=== PATIENT | female | born 1995 | race Caucasian/White ===

== ENCOUNTER 2016-09-11 20:34 | Emergency (ER) | payer OTHER ==
[2016-09-11 21:02] LABS: APPEARANCE,URINE Clear (CLEAR); COLOR,URINE Yellow (YELLOW); OCCULT BLOOD,URINE Negative (NEGATIVE); PH URINE 8.5 (5.0 - 8.0)
--- NOTE | 2016-09-11 22:17 | ED Physician Documentation ---
General Adult - HISTORIAN Historian: patient - HPI Stated Complaint: weakness, possible Chief Complaint: General Adult Timing: still present Severity: mild Further Comments: yes (Spike states that she has not has a period since July , usually is regular. Is taking birht control pill. Has not skipped any. Almost finished with graham now, had some spotting 2 days ago and lasted for two days. Has done some home tests whcich have been negative. Has been having some lower abd pain. No nausea or vomiting noted. Seems to be better at this time.) - ROS CONST: no problems. denies: fever, chills - PAST HX Past History: none Other History: none Surgeries/Procedures: none Allergies/Adverse Reactions: Allergies Allergy/AdvReac Type Severity Reaction Status Date / Time diphenhydramine HCl Allergy No Reaction Verified 09/11/16 21:31 [From Benadryl] Home Medications: Ambulatory Orders Medication Instructions Recorded NK [NK] 09/11/16 - SOCIAL HX Smoking History: less than 1 pack/day (1/2 ppd) Alcohol Use: occasionally Drug Use: none - FAMILY HX Family History: No - VITAL SIGNS Vital Signs: Vital Signs Temp Pulse Resp BP Pulse Ox 98.2 F 103 H 18 138/81 98 09/11/16 20:45 09/11/16 20:45 09/11/16 20:45 09/11/16 20:45 09/11/16 20:45 - REVIEWED ASSESSMENTS Nursing Assessment Reviewed: Yes Vitals Reviewed: Yes ED Results Lab/Radiology - Lab Results Lab Results: Lab Results 09/11/16 09/11/16 20:57 20:56 Urine Color Yellow (YELLOW) Urine Appearance Clear (CLEAR) Urine pH 8.5 (5.0 - 8.0) Ur Specific Dahlgren 1.015 (1.010-1.030) Urine Protein Negative mg/dL mg/dL (NEGATIVE) Urine Ketones Negative mg/dL mg/dL (NEGATIVE) Urine Occult Blood Negative (NEGATIVE) Urine Nitrite Negative (NEGATIVE) Urine Bilirubin Negative (NEGATIVE) Urine Urobilinogen 1.0 Eu Eu (0.2-1.0) Ur Leukocyte Esterase Negative (NEGATIVE) Urine Glucose Negative mg/dL mg/dL (NEGATIVE) Urine HCG, Qual Negative (NEGATIVE) - Orders Orders: ED Orders Category Date Time Status UA W/MICRO IF INDICATED Stat Lab 09/11/16 20:57 Completed URINE HCG Stat Lab 09/11/16 20:56 Completed General Adult Physical Exam - PHYSICAL EXAM GENERAL APPEARANCE: mild distress NECK: normal inspection, thyroid normal RESPIRATORY: no resp distress, chest non-tender, breath sounds normal. No: wheezes, rales, rhonchi CVS: reg rate & rhythm, heart sounds normal, equal pulses, no murmur, no gallop ABDOMEN: soft, no organomegaly, normal bowel sounds, no abdominal bruit, no distension, non-tender BACK: normal inspection, no CVA tenderness SKIN: warm/dry, normal color NEURO: oriented X3, CN's nml as tested, motor nml, sensation nml Discharge Clincal Impression: Spotting between menses Referrals: Primary Doctor,No [Primary Care Provider] - 2 Days Additional Instructions: Continue taking your control pills as directed. I would expect your next menstrual period to be heavier then normal. If you have any further problems to see a primary care provider or returnt to the ED. Home Medications: Ambulatory Orders NK [NK] 09/11/16 Condition: Stable Disposition: 01 HOME, SELF-CARE Decision to Admit: NO Date of Decison to Admit: 09/11/16 Decision Time: 22:11
[2016-09-11 22:28] VITALS: BP 123/79
== END 2016-09-11 22:27 | disposition home or self-care (01) ==
LOC: ED 20:34
DX: N92.0 Excessive and frequent menstruation with regular cycle (principal)
CPT/HCPCS: 81002; 81025; 99283

== ENCOUNTER 2019-01-31 11:05 | Emergency (ER) | payer SELFPAY ==
--- NOTE | 2019-01-31 11:43 | ED Physician Documentation ---
GI Bleed - HISTORIAN Historian: patient - HPI Stated Complaint: abd pain Chief Complaint: Abdominal Pain Onset: days ago (3-4 days) Timing: still present Severity: moderate Further Comments: yes (23 year old female patient presents with complaints of abdominal pain, epigastric discomfort, heavy periods and nausea. Reports nausea and periumbilical abd pain x 3-4 days; last BM 2 days ago. Report heavy period with clots to 01/19 - 01/31; today "light and dark". Patient is currently on Depomedrol, next injection in February; started injections . G2, P2) - Associated Symptoms Abdominal Pain: periumbilical Other Related Symptoms: nausea. denies: vomiting, back pain, fainting, d izziness, light-headedness - ROS CONST: chills. denies: fever SKIN/LYMPH: denies: leg swelling, rash, swollen glands, ankle swelling, other CVS/RESP: none GI/: denies: rectal intercourse, problems urinating, testicular pain, foreign body, genital pain, other EYES/ENT: denies: problems with vision, sore throat, nose bleed, other MS: none NEURO/PSYCH: denies: headache, lost feeling, confusion, anxiety, depression, loss of power, other - PAST HX Past History: denies: bleeding disorder Allergies/Adverse Reactions: Allergies Allergy/AdvReac Type Severity Reaction Status Date / Time diphenhydramine HCl Allergy No Reaction Verified 01/31/19 11:36 [From Benadryl] Home Medications: Ambulatory Orders Medication Instructions Recorded Ondansetron HCl Rapdis [Zofran Odt] 4 mg PO Q6 PRN #15 tab 01/31/19 - SOCIAL HX Smoking History: non-smoker - FAMILY HX Family History: denies: none - VITAL SIGNS Vital Signs: Vital Signs Temp Pulse Resp BP Pulse Ox 97.6 F 80 14 116/72 99 01/31/19 11:07 01/31/19 12:43 01/31/19 12:43 01/31/19 12:43 01/31/19 12:43 - REVIEWED ASSESSMENTS Nursing Assessment Reviewed: Yes Vitals Reviewed: Yes Progress - Progress Progress: Reviewed lab and HCG results with patient; questions answered. Discussed referral to OBGYN for further evaluation of heavy periods. Patient to make appointment. Discharged home with zofran PRN; patient verbalized understanding of instructions and is in agreement with plan of care. ED Results Lab/Radiology - Lab Results Lab Results: Lab Results 01/31/19 01/31/19 01/31/19 12:10 12:10 11:40 WBC 4.30 K/ul K/ul (4.00-12.00) RBC 4.83 M/ul M/ul (3.90-5.20) Hgb 14.1 g/dL g/dL (11.5-16.0) Hct 40.8 % % (34.5-46.5) MCV 84.0 fl fl (80.0-100.0) MCH 29.3 pg pg (28.0-34.0) MCHC 34.7 g/dL g/dL (30.0-36.0) RDW 13.1 % % (11.3-14.3) Plt Count 247 K/mm3 K/mm3 (130-400) Neut % (Auto) 72.2 % % (39.0-79.0) Lymph % (Auto) 17.9 % % (16.0-50.0) Hutchinson % (Auto) 7.3 % % (0.0-11.0) Eos % (Auto) 2.2 % % (0.0-6.8) Baso % (Auto) 0.4 % % (0.0-1.5) Neut # (Auto) 3.1 # k/uL # k/uL (1.4-7.7) Lymph # (Auto) 0.8 # k/uL # k/uL (0.6-4.0) Hutchinson # (Auto) 0.3 # k/uL # k/uL (0.0-0.9) Eos # (Auto) 0.1 # k/uL # k/uL (0.0-0.6) Baso # (Auto) 0.0 # k/uL # k/uL (0.0-0.5) Sodium 141 mmol/L mmol/L (137-145) Potassium 4.0 mmol/L mmol/L (3.5-5.1) Chloride 104 mmol/L mmol/L (98-107) Carbon Dioxide 27 mmol/L mmol/L (22-30) Anion Gap 14.0 BUN 10 mg/dL mg/dL (7-17) Creatinine 0.68 mg/dL mg/dL (0.52-1.04) Estimated Creat Clear 161 Est GFR ( Amer) > 60 (60 - ) Est GFR (Non-Af Amer) > 60 (60 - ) Glucose 101 mg/dL mg/dL (74-106) Calcium 9.7 mg/dL mg/dL (8.4-10.2) Total Bilirubin 1.1 mg/dL mg/dL (0.2-1.3) AST 24 U/L U/L (15-46) ALT 12 U/L U/L (0-35) Alkaline Phosphatase 75 U/L U/L (38-126) Total Protein 8.0 g/dL g/dL (6.3-8.2) Albumin 4.8 g/dL g/dL (3.5-5.0) Lipase 67 U/L U/L (23-300) Urine HCG, Qual Negative (NEGATIVE) - Orders Orders: ED Orders Category Date Time Status CBC/PLATELET/DIFF Stat Lab 01/31/19 12:10 Completed CMP Stat Lab 01/31/19 12:10 Completed LIPASE Stat Lab 01/31/19 12:10 Completed URINE HCG Stat Lab 01/31/19 11:40 Completed Abdominal Pain Physical Exam - Physical Exam General Appearance: mild distress EENT: eye inspection normal, GREGG RESPIRATORY: no resp distress, chest non-tender, breath sounds normal CVS: reg rate & rhythm, heart sounds normal, equal pulses, no murmur, no gallop, PMI nml, no JVD, no friction rub, 24 ABDOMEN: soft, no organomegaly, normal bowel sounds, no abdominal bruit, no distension, tenderness (periumbilical with palpation). No: McBurney's point tenderne, psoas, obturator sign, rebound BACK: normal inspection, no CVA tenderness SKIN: normal color, warm/dry, NR, INT, PAL, DR EXTREMITIES: non-tender, normal range of motion, no evidence of injury, no edema, J, [employer] NEURO: oriented X3, CN's nml as tested, motor nml, sensation nml Vital Signs: Vital Signs Temp Pulse Resp BP Pulse Ox 97.6 F 80 14 116/72 99 01/31/19 11:07 01/31/19 12:43 01/31/19 12:43 01/31/19 12:43 01/31/19 12:43 Discharge Clincal Impression: Dysfunctional uterine bleeding, Nausea Prescriptions: Ondansetron HCl Rapdis [Zofran Odt] 4 mg PO Q6 PRN #15 tab PRN Reason: Nausea / Vomiting Referrals: Primary Doctor,No [Primary Care Provider] - 2 Days Additional Instructions: All of your lab work was normal today; the test was negative. A prescription for nausea medication has been sent to the pharmacy You may want to consider seeing an OBGYN if your uterine bleeding does not improve. Diet: Clear liquids Sprite/7-up Juices apple, white grape Gatorade/Powerade Jello Popsicles When tolerating clear liquids, advance to bland/brat diet - such as crackers, rice, Bananas, apples/applesauce or toast Return to the emergency department or call your doctor, if you are having severe abdominal pain, fever >101.0, or if there is blood in the vomit or diarrhea, or you cannot keep down liquids or solid food. Condition: Stable Disposition: 01 HOME, SELF-CARE Decision to Admit: NO Decision Time: 12:35
[2019-01-31 12:12] LABS: BASOPHILS % 0.4 % (0.0-1.5); NEUTROPHILS # 3.1 # k/uL (1.4-7.7)
[2019-01-31 12:21] LABS: eGFR (Non-African) > 60
[2019-01-31 12:44] VITALS: BP 116/72
== END 2019-01-31 12:43 | disposition home or self-care (01) ==
LOC: ED 11:05
DX: N93.8 Other specified abnormal uterine and vaginal bleeding (principal); R11.0 Nausea
CPT/HCPCS: 80053; 81025; 83690; 85025; 99282